=== PATIENT | male | born 1970 | race Caucasian/White ===

== ENCOUNTER 2018-05-27 17:57 | Emergency (ER) | payer OTHER ==
[~2018-05-27] VITALS: Ht 185.4 cm; Wt 106.6 kg
[2018-05-27 18:10] VITALS: BP 145/92
[2018-05-27 19:35] LABS: Eosinophils # (auto) 0 uL; Eosinophils % (auto) 0.2 % (0.0-7.0); Lymphocytes # (auto) 1.4 uL; Monocytes # (auto) 1.3 uL; Nucleated Red Blood Cells % 0.1 %; White Blood Cell 18.2 10^3/uL (4.4-10.8)
[2018-05-27 19:37] LABS: Basophils # (auto) 0.1 uL; Basophils % (auto) 0.3 % (0.0-2.0); Hematocrit 54.5 % (41.0-53.0); Hemoglobin 18.6 g/dL (13.5-17.5); Lymphocytes % (auto) 7.6 % (10.0-50.0); Mean Corpuscular Hemoglobin 32.6 pg (28.0-32.0); Mean Corpuscular Hgb Conc. 34.1 g/dL (32.0-36.0); Mean Corpuscular Volume 95.6 fL (80.0-100.0); Monocytes % (auto) 6.9 % (0.0-12.0); Neutrophils # (auto) 15.5 uL; Platelet Count (auto) 268 10^3/uL (140-450); Red Cell Distribution Width 13.3 % (11.8-14.3)
[2018-05-27 19:57] LABS: Alanine Aminotransferase 46 U/L (16-61); Albumin 4.2 g/dL (3.4-5.0); Alkaline Phosphatase 174 U/L (45-117); Anion Gap 10 (5-15); Aspartate Aminotransferase 23 U/L (15-37); BUN/Creatinine Ratio 8.8; Bilirubin, Total 0.8 mg/dL (0.2-1.0); Blood Urea Nitrogen 12 mg/dL (7-18); Calcium 9.9 mg/dL (8.5-10.1); Carbon Dioxide 25 mmol/L (21-32); Chloride 105 mmol/L (98-107); GFR African American 72 mL/min; GFR Non-African American 59 mL/min; Glucose 100 mg/dL (74-106); Lipase 94 U/L (73-393); Potassium 3.5 mmol/L (3.5-5.1); Sodium 140 mmol/L (136-145); Total Protein 8.8 g/dL (6.4-8.2)
== END 2018-05-27 21:19 | disposition left against medical advice (07) ==
LOC: ER 18:03
DX: R10.9 Unspecified abdominal pain (principal); Z53.21 Procedure and treatment not carried out due to patient leaving prior to being seen by health care provider
CPT/HCPCS: 36415; 80053; 83690; 84484; 85025; 93005